=== PATIENT | female | born 1975 | race Caucasian/White ===

== ENCOUNTER → 2018-11-21 | Outpatient (CLI) | payer SELFPAY | LOC: RAD 07:16 | DX: R93.89 Abnormal findings on diagnostic imaging of other specified body structures (principal); N93.9 Abnormal uterine and vaginal bleeding, unspecified; R10.2 Pelvic and perineal pain; Z78.0 Asymptomatic menopausal state ==

== ENCOUNTER → 2018-12-17 | Outpatient (CLI) | payer SELFPAY ==
[2018-12-18 02:42] LABS: FOLLICLE STIMULATING HORMONE 4.3 mIU/mL (()); LUTENIZING HORMONE 4.7 mIU/mL (()); PROLACTIN 11.2 ng/mL (5.2-26.5)
== END ==
LOC: LAB 14:50
PROVIDERS: General Practice
DX: N94.6 Dysmenorrhea, unspecified (principal); Z78.0 Asymptomatic menopausal state